=== PATIENT | female | born 1985 | race Caucasian/White ===

== ENCOUNTER 2017-11-11 15:51 | Emergency (ER) | payer MEDICAID ==
[~2017-11-11] VITALS: Ht 160 cm; Wt 96.0 kg
[2017-11-11 15:57] VITALS: BP 127/76
[2017-11-11 17:08] LABS: BASOPHILS # (AUTO) 0.02 x10^3/uL (0-0.1); BASOPHILS % (AUTO) 0 % (0-1); EOSINOPHILS # (AUTO) 0.12 x10^3/uL (0-0.4); EOSINOPHILS % (AUTO) 1 % (1-7); LYMPHOCYTES # (AUTO) 1.85 x10^3/uL (1-3.4); LYMPHOCYTES % (AUTO) 21 % (22-44); MD NO; MEAN CORPUSCULAR HEMOGLOBIN 29.7 pg (27.0-34.8); MEAN CORPUSCULAR HGB CONC 33.6 g/dL (32.4-35.8); MEAN CORPUSCULAR VOLUME 88.4 fL (80-100); MEAN PLATELET VOLUME 8.3 fL (7.4-10.4); MONOCYTES # (AUTO) 0.44 x10^3/uL (0.2-0.8); MONOCYTES % (AUTO) 5 % (2-9); NEUTROPHILS # (AUTO) 6.48 x10^3/uL (1.8-6.8); NEUTROPHILS % (AUTO) 73 % (42-75); PLATELET COUNT 272 x10^3/uL (130-400); RED BLOOD COUNT 4.12 x10^6/uL (3.82-5.3); RED CELL DISTRIBUTION WIDTH 15.3 % (9.6-15.2)
[2017-11-11 17:20] LABS: ALBUMIN 3.2 g/dL (3.4-5.0); ANION GAP 8 mmol/L (5-15); CHLORIDE 109 mmol/L (98-107); CREATININE 0.72 mg/dL (0.55-1.02)
[2017-11-11 17:49] LABS: CULTURE INDICATED? YES; MICROSCOPIC INDICATED
== END 2017-11-11 18:44 | disposition home or self-care (01) ==
LOC: ED 17:51
DX: N93.8 Other specified abnormal uterine and vaginal bleeding (principal)
CPT/HCPCS: 36415; 76830; 80048; 81001; 82040; 84703; 85025; 87077; 87086; 87186; 99285

== ENCOUNTER 2018-05-28 19:11 | Emergency (ER) | payer SELFPAY ==
[~2018-05-28] VITALS: Ht 162.6 cm; Wt 97.8 kg
[2018-05-28 19:13] VITALS: BP 122/76
== END 2018-05-28 20:32 | disposition home or self-care (01) ==
LOC: ED 20:15
DX: K02.9 Dental caries, unspecified (principal)
CPT/HCPCS: 99283

== ENCOUNTER 2019-03-12 21:53 | Emergency (ER) | payer MEDICAID, OTHER ==
[~2019-03-12] VITALS: Ht 160 cm; Wt 104.4 kg
--- NOTE | 2019-03-12 22:14 | NUR ---
TASK RN: PT. TO ED WITH C/O INTERMITTENT CP DESCRIBED SHARP IN NATURE BUT SELF-RESOLVING. PT. AMBULATORY TO ED RM 3 WITH STEADY GAIT AT THIS TIME. CONTINUOUS PULSE OX, B/P, AND HEART MONTIORS PLACED. FAMILY WITH PT. CALL LIGHT IN REACH. ALL SAFETY MEASURES OBSERVED.
--- NOTE | 2019-03-12 22:37 | NUR ---
CHEST X-RAY HAS BEEN COMPLETED, LABS DRAWN. PT. RESTING ON GURNEY WITH NO DISTRESS NOTED. REPORT TO MICHAEL BAKER TO ASSUME CARE.
[2019-03-12 22:47] LABS: BASOPHILS # (AUTO) 0.03 x10^3/uL (0-0.1); BASOPHILS % (AUTO) 0 % (0-1); EOSINOPHILS # (AUTO) 0.24 x10^3/uL (0-0.4); EOSINOPHILS % (AUTO) 2 % (1-7); LYMPHOCYTES # (AUTO) 3.54 x10^3/uL (1-3.4); LYMPHOCYTES % (AUTO) 32 % (22-44); MD NO; MEAN CORPUSCULAR HEMOGLOBIN 24.4 pg (27.0-34.8); MEAN CORPUSCULAR VOLUME 76.3 fL (80-100); MEAN PLATELET VOLUME 8.6 fL (7.4-10.4); MONOCYTES # (AUTO) 0.64 x10^3/uL (0.2-0.8); MONOCYTES % (AUTO) 6 % (2-9); NEUTROPHILS # (AUTO) 6.51 x10^3/uL (1.8-6.8); NEUTROPHILS % (AUTO) 59 % (42-75); PLATELET COUNT 327 x10^3/uL (130-400); RED CELL DISTRIBUTION WIDTH 17.6 % (9.6-15.2)
[2019-03-12 22:54] LABS: ALBUMIN 3.4 g/dL (3.4-5.0); ANION GAP 6 mmol/L (5-15); CALCIUM 8.7 mg/dL (8.5-10.1); CHLORIDE 109 mmol/L (98-107); CREATININE 0.78 mg/dL (0.55-1.02)
[2019-03-12 22:58] LABS: TROPONIN I < 0.015 ng/mL (0.000-0.045)
[2019-03-12] MEDS ORDERED: HYDROcodone/APAP 5/325 TABLET PO ONE (23:30)
[2019-03-12 23:40] VITALS: BP 99/56
== END 2019-03-12 23:47 | disposition home or self-care (01) ==
LOC: ED 23:41
DX: R07.89 Other chest pain (principal)
CPT/HCPCS: 36415; 71046; 80048; 82040; 84484; 85025; 93005; 99284

== ENCOUNTER 2019-10-27 22:58 | Emergency (ER) | payer MEDICAID ==
[~2019-10-27] VITALS: Ht 160 cm; Wt 96.0 kg
[2019-10-27 23:00] VITALS: BP 126/70
== END 2019-10-27 23:19 | disposition home or self-care (01) ==
LOC: ED 23:00
DX: O99.611 Diseases of the digestive system complicating pregnancy, first trimester (principal); K08.89 Other specified disorders of teeth and supporting structures; Z3A.12 12 weeks gestation of pregnancy
CPT/HCPCS: 99283

== ENCOUNTER 2020-01-02 17:29 | Observation (INO) | payer MEDICAID ==
[~2020-01-02] VITALS: Ht 165.1 cm; Wt 97.7 kg
[2020-01-02 17:58] LABS: MICROSCOPIC INDICATED
[2020-01-02] MEDS ORDERED: LACTATED RINGERS 1,000 ML IV SCH (19:30)
[2020-01-02] MEDS ORDERED: CEFTRIAXONE PMX 1GM/50ML 50 ML IV SCH (19:30)
[2020-01-02 20:20] LABS: BASOPHILS % (AUTO) 0 % (0-1); EOSINOPHILS % (AUTO) 0 % (1-7); LYMPHOCYTES % (AUTO) 10 % (22-44); MEAN CORPUSCULAR HEMOGLOBIN 28.1 pg (27.0-34.8); MEAN CORPUSCULAR HGB CONC 32.8 g/dL (32.4-35.8); MONOCYTES % (AUTO) 7 % (2-9); NEUTROPHILS % (AUTO) 83 % (42-75); PLATELET COUNT 242 x10^3/uL (130-400); RED CELL DISTRIBUTION WIDTH 14.6 % (9.6-15.2)
[2020-01-02 20:25] LABS: MD NO
[2020-01-03 09:15] VITALS: BP 112/67
== END 2020-01-03 09:22 | disposition home or self-care (01) ==
LOC: LDOP 17:29 → LDIP 19:26 → INTOOBSV 19:26
PROVIDERS: ADMIT Obstetrics & Gynecology; ATTEND Obstetrics & Gynecology
DX: O23.02 Infections of kidney in pregnancy, second trimester (principal); Z20.828 Contact with and (suspected) exposure to other viral communicable diseases; Z98.891 History of uterine scar from previous surgery; Z79.899 Other long term (current) drug therapy; Z3A.25 25 weeks gestation of pregnancy
CPT/HCPCS: 36415; 81001; 85025; 87077; 87086; 87186; 87635; 96365; G0378; J0696; J7120

== ENCOUNTER 2020-03-15 12:13 | Outpatient (CLI) | payer MEDICAID ==
[~2020-03-15] VITALS: Ht 157.5 cm; Wt 102.2 kg
[2020-03-15 12:39] VITALS: BP 132/82
[2020-03-15 12:53] LABS: MICROSCOPIC INDICATED
[2020-03-15] MEDS ORDERED: NITROFURANTOIN (MACROBID) 100 MG CAPSULE ONE (13:26)
[2020-03-15] MEDS ORDERED: NITROFURANTOIN (MACROBID) 100 MG CAPSULE PO ONE (13:30)
[2020-03-15 13:37] LABS: MICROSCOPIC INDICATED
[2020-03-15] MEDS ORDERED: PREN1TAB10 PO (13:57)
[2020-03-15] MEDS ORDERED: NITR100C56 PO (13:57)
== END 2020-03-15 14:35 | disposition home or self-care (01) ==
LOC: LDOP 12:13
PROVIDERS: ATTEND Obstetrics & Gynecology
DX: O23.43 Unspecified infection of urinary tract in pregnancy, third trimester (principal); Z3A.35 35 weeks gestation of pregnancy
CPT/HCPCS: 59025; 81001; 87077; 87086; 87186

== ENCOUNTER 2020-04-13 10:30 | Inpatient (IN) | payer MEDICAID ==
[~2020-04-13] VITALS: Ht 157.5 cm; Wt 102.2 kg
[~2020-04-13 10:30] MED LIST: NITR100C56 PO; PREN1TAB10 PO
[2020-04-13] MEDS ORDERED: NEWBORN KIT ONE (10:34)
[2020-04-13] MEDS ORDERED: METOCLOPRAMIDE 5 MG/ML, 2ML ONE (10:34)
[2020-04-13] MEDS ORDERED: SODIUM CITRATE/CITRIC ACID 15 ML UDC ONE (10:34)
[2020-04-13] MEDS ORDERED: OXYTOCIN 30U/ 0.9% NaCL 500ML 500 ML ONE (10:34)
[2020-04-13 11:00] VITALS: BP 137/80
[2020-04-13] MEDS ORDERED: LACTATED RINGERS 1,000 ML IVBOLUS ONE (11:00)
[2020-04-13] MEDS ORDERED: PLEASE ENTER HEIGHT AND WEIGHT MC SCH (11:00)
[2020-04-13] MEDS ORDERED: METOCLOPRAMIDE 5 MG/ML, 2ML IV ONE (11:00)
[2020-04-13] MEDS ORDERED: LACTATED RINGERS 1,000 ML IV SCH (11:00)
[2020-04-13] MEDS ORDERED: SODIUM CITRATE/CITRIC ACID 30 ML UDC PO ONE (11:00)
[2020-04-13 11:05] LABS: BASOPHILS % (AUTO) 0 % (0-1); EOSINOPHILS % (AUTO) 1 % (1-7); LYMPHOCYTES % (AUTO) 16 % (22-44); MEAN CORPUSCULAR HEMOGLOBIN 23.5 pg (27.0-34.8); MEAN CORPUSCULAR HGB CONC 31.5 g/dL (32.4-35.8); MEAN PLATELET VOLUME 9.4 fL (7.4-10.4); MONOCYTES % (AUTO) 4 % (2-9); NEUTROPHILS % (AUTO) 78 % (42-75); PLATELET COUNT 245 x10^3/uL (130-400); RED BLOOD COUNT 4.51 x10^6/uL (3.82-5.3); RED CELL DISTRIBUTION WIDTH 17.5 % (9.6-15.2)
[2020-04-13 11:07] LABS: MD NO
[2020-04-13] MEDS ORDERED: morphine SULFATE/PF 0.5 MG/ML, 10ML ONE (11:37)
[2020-04-13] MEDS ORDERED: WATER-INJECTION,STERILE 10 ML IV ONE (12:22)
[2020-04-13] MEDS ORDERED: PHENYLEPHRINE 10 MG/ML ONE (12:22)
[2020-04-13] MEDS ORDERED: OXYTOCIN 10 UNITS/ML, 1ML ONE (12:22)
[2020-04-13] MEDS ORDERED: EPHEDRINE 50 MG/ML, 1ML ONE (12:22)
[2020-04-13] MEDS ORDERED: ONDANSETRON 2MG/ML, 2ML ONE ×2 (12:22→13:26)
[2020-04-13] MEDS ORDERED: CEFAZOLIN 1,000 MG ONE (12:22)
[2020-04-13] MEDS ORDERED: SIMETHICONE 80 MG CHEW TAB PO PRN (13:00)
[2020-04-13] MEDS: OXYTOCIN 30U/ 0.9% NaCL 500ML 500 ML IV SCH ×2 (13:00→23:00)
[2020-04-13] MEDS: LACTATED RINGERS 1,000 ML IV SCH ×4 (13:00→23:00)
[2020-04-13] MEDS ORDERED: METHYLERGONOVINE 0.2 MG/ML IM PRN (13:00)
[2020-04-13] MEDS ORDERED: IBUPROFEN 800 MG TABLET PO PRN (13:00)
[2020-04-13] MEDS ORDERED: OXYcodone/APAP 5/325MG TABLET PO PRN ×2 (13:00)
[2020-04-13] MEDS ORDERED: MISOPROSTOL 200 MCG TABLET PR PRN (13:00)
[2020-04-13] MEDS ORDERED: OXYcodone 5 MG/5 ML ORAL.SOL UDC PO PRN (13:30)
[2020-04-13] MEDS: ONDANSETRON 2MG/ML, 2ML IV PRN ×2 (13:30→21:09)
[2020-04-13] MEDS ORDERED: KETOROLAC 30 MG/1 ML ONE (13:49)
[2020-04-13] MEDS ORDERED: OXYcodone 5 MG/5 ML ORAL.SOL UDC ONE (13:49)
[2020-04-13] MEDS ORDERED: MISOPROSTOL 200 MCG TABLET ONE (13:50)
[2020-04-13] MEDS ORDERED: KETOROLAC 30 MG/1 ML IM PRN (14:30)
[2020-04-13 16:00] VITALS: BP 103/59
[2020-04-13 20:48] LABS: BASOPHILS % (AUTO) 0 % (0-1); EOSINOPHILS % (AUTO) 0 % (1-7); LYMPHOCYTES % (AUTO) 13 % (22-44); MEAN CORPUSCULAR HEMOGLOBIN 23.7 pg (27.0-34.8); MEAN CORPUSCULAR HGB CONC 31.9 g/dL (32.4-35.8); MEAN PLATELET VOLUME 9.3 fL (7.4-10.4); MONOCYTES % (AUTO) 4 % (2-9); NEUTROPHILS % (AUTO) 83 % (42-75); PLATELET COUNT 194 x10^3/uL (130-400); RED CELL DISTRIBUTION WIDTH 17.3 % (9.6-15.2)
[2020-04-13 20:49] LABS: MD NO
[2020-04-13 21:15] VITALS: BP 119/78
[2020-04-13] MEDS ORDERED: KETOROLAC 30 MG/1 ML IM SCH (22:00)
[2020-04-13] MEDS: KETOROLAC 30 MG/1 ML IV SCH (22:24)
[2020-04-14 00:25] VITALS: BP 110/70
[2020-04-14] MEDS: KETOROLAC 30 MG/1 ML IV SCH ×2 (04:28→10:50)
[2020-04-14] MEDS: LACTATED RINGERS 1,000 ML IV SCH ×5 (05:00→21:00)
[2020-04-14 06:15] VITALS: BP 117/86
[2020-04-14] MEDS: DOCUSATE 100 MG CAPSULE PO PRN (07:26)
[2020-04-14] MEDS: PRENATAL VIT/IRON/FA 1 EACH TABLET PO SCH (07:26)
[2020-04-14 07:43] VITALS: BP 110/75
[2020-04-14] MEDS: OXYTOCIN 30U/ 0.9% NaCL 500ML 500 ML IV SCH ×2 (09:00→19:00)
[2020-04-14 12:56] VITALS: BP 110/75
[2020-04-14] MEDS ORDERED: IBUPROFEN 800 MG TABLET ONE ×2 (18:11)
[2020-04-14] MEDS: IBUPROFEN 800 MG TABLET PO PRN (18:21)
[2020-04-14] MEDS ORDERED: DIPH,PERTUSS(ACELL),TET VAC/PF NC IM-VACC ONE (18:30)
[2020-04-14 19:30] VITALS: BP 117/80
[2020-04-15] MEDS ORDERED: DIPH,PERTUSS(ACELL),TET VAC/PF NC IM-VACC ONE (02:03)
[2020-04-15] MEDS: DOCUSATE 100 MG CAPSULE PO PRN ×2 (02:09→11:17)
[2020-04-15] MEDS: IBUPROFEN 800 MG TABLET PO PRN (02:09)
[2020-04-15] MEDS: LACTATED RINGERS 1,000 ML IV SCH ×2 (05:00)
[2020-04-15] MEDS: OXYTOCIN 30U/ 0.9% NaCL 500ML 500 ML IV SCH (05:00)
[2020-04-15] MEDS ORDERED: IBUP-1223 PO (07:37)
[2020-04-15] MEDS ORDERED: DOCU-131 PO (07:37)
[2020-04-15] MEDS ORDERED: OXYC1TAB14 PO (07:37)
[2020-04-15 07:43] VITALS: BP 127/84
[2020-04-15] MEDS: PRENATAL VIT/IRON/FA 1 EACH TABLET PO SCH (09:00)
[2020-04-19] MEDS ORDERED: IBUPROFEN 800 MG TABLET PO PRN (08:00)
== END 2020-04-15 11:29 | disposition home or self-care (01) | DRG 785 ==
LOC: LDIP 10:30 → 2NW 15:30
PROVIDERS: ADMIT Obstetrics & Gynecology; ATTEND Obstetrics & Gynecology
PROC: 10D00Z1 Extraction of Products of Conception, Low, Open Approach (ICD-10-PCS; principal; 2020-04-13)
PROC: 0UB70ZZ Excision of Bilateral Fallopian Tubes, Open Approach (ICD-10-PCS; 2020-04-13)
PROC: 3E0234Z Introduction of Serum, Toxoid and Vaccine into Muscle, Percutaneous Approach (ICD-10-PCS; 2020-04-15)
DX: O34.211 Maternal care for low transverse scar from previous cesarean delivery (principal); Z37.0 Single live birth; Z3A.39 39 weeks gestation of pregnancy; Z20.822 Contact with and (suspected) exposure to COVID-19; Z88.2 Allergy status to sulfonamides; Z23 Encounter for immunization
CPT/HCPCS: 36415; 85025; 86592; 86850; 86900; 87635; 88302; 90715; G0378; J0690; J1885; J2274; J2405; J2370; J2590; J2765; J7120